=== PATIENT | male | born 2000 | race Caucasian/White ===

== ENCOUNTER 2023-10-17 08:10 | Outpatient (CLI) | payer OTHER, SELFPAY | END 2023-10-17 08:11 | disposition home or self-care (01) | PROVIDERS: PCP Nurse Practitioner Family; Visit Provider Nurse Practitioner Family | DX: Z13.228 Encounter for screening for other metabolic disorders (principal); Z13.0 Encounter for screening for diseases of the blood and blood-forming organs and certain disorders involving the immune mechanism | CPT/HCPCS: 80048; 85025 ==